=== PATIENT | female | born 1985 | race Hispanic/Latino ===

== ENCOUNTER 2017-04-26 15:01 | Outpatient (CLI) | payer OTHER | END 2017-04-26 15:02 | disposition home or self-care (01) | LOC: BICRAD 15:01 | DX: R05 Cough (principal); E66.9 Obesity, unspecified | CPT/HCPCS: 71046 ==

== ENCOUNTER 2017-08-22 06:44 | Emergency (ER) | payer OTHER ==
[2017-08-22 07:08] LABS: #Eosinphils 0.2 thou/uL (0.0-0.7); #Lymphocytes 2.5 thou/uL (1.20-3.40); #Monocytes 0.6 thou/uL (0.11-0.59); #Neutrophils 6.4 thou/uL (1.40-6.50); %Basophils 0.4 % (0.0-1.0); %Lymphocytes 25.4 % (21.0-51.0); %Monocytes 6.3 % (0.0-10.0); %Neutrophils 65.9 % (42.0-75.0); Hemoglobin 13.9 g/dL (12.0-16.0); Mean Corpuscular HGB CONC 36.1 g/dL (32.0-36.0); Mean Corpuscular Hemoglobin 32.8 pg (27.0-31.0); Mean Corpuscular Volume 91.1 fl (81.0-99.0); Platelet Count 318 thou/uL (130-400); Red Blood Cell (RBC) Count 4.24 mill/uL (4.20-5.40); White Blood Cell (WBC) Count 9.7 thou/uL (4.8-10.8)
--- NOTE | 2017-08-22 09:29 | ULT ---
ULTRASOUND PELVIC WITH DOPPLER: Date: 08/22/17 HISTORY: Pelvic pain. COMPARISON: None. TECHNIQUE: Real-time Perla scale with color Doppler and spectral analysis of the pelvis was performed via transab dominal and transvaginal approach. FINDINGS: The endometrium appears to be decidualized with a small hypoechoic focus within the fundus suggesting a gestational sac with a mean sac diameter of 0.47 cm. The endometrial thickness is 2.3 cm. Both ovaries are normal with adequate vascular flow. No free fluid in the pelvis. IMPRESSION: Likely a small gestational sac within the uterine fundus, with decidualized endometrium. Close follow -up HCG and ultrasound recommended. No pole is yet seen, which may reflect an early . POS: [facility]
== END 2017-08-22 09:39 | disposition home or self-care (01) ==
LOC: ERS 06:44
DX: O20.0 Threatened abortion (principal); O99.341 Other mental disorders complicating pregnancy, first trimester; F32.9 Major depressive disorder, single episode, unspecified; Z3A.10 10 weeks gestation of pregnancy
CPT/HCPCS: 36415; 76856; 84702; 85025; 86850; 86900; 86901

== ENCOUNTER 2017-12-21 13:57 | Outpatient (CLI) | payer OTHER ==
--- NOTE | 2017-12-21 16:29 | ULT ---
COMPLETE OB ULTRASOUND: 12/21/17 HISTORY: 31-year-old female with history of size and dates and anatomy evaluation. Single viable intrauterine fetus is noted in footling breech presentation. The placenta is posterior without evidence for placenta previa. Cervical length is poorly seen. heart rate 155 beats per minute. Amniotic fluid is within normal limits with an KAY of 14.7 cm. ANATOMY: Visualized brain, four chamber heart, three vessel cord, stomach, bladder, kidneys, spine and e xtremity regions are unremarkable as evaluated. BIOMETRY: BPD 5.4 cm - - 22 weeks, 3 days Head circumference 20.2 cm - - 22 weeks, 3 days Abdominal circumference 17.1 cm - - 22 weeks, 1 day Femur length 3.7 cm - - 21 weeks, 5 days IMPRESSION: Single viable intrauterine fetus at 22 weeks, 2 days. MORENA 04/24/18. Estimated weight is 462 gram s. POS: [facility]
== END 2017-12-21 13:58 | disposition home or self-care (01) ==
LOC: BICULT 13:57
PROVIDERS: ATTEND Family Medicine
DX: O09.892 Supervision of other high risk pregnancies, second trimester (principal); Z3A.22 22 weeks gestation of pregnancy
CPT/HCPCS: 76805

== ENCOUNTER 2018-02-19 03:05 | Day surgery (SDC) | payer OTHER ==
[2018-02-19 03:41] VITALS: BP 132/78; BMI 35.3
--- NOTE | 2018-02-19 04:19 | PDOC.FPROB ---
FMR OB H&P: HPI - History of Present Illness Chief Complaint: Contractions Indentification: 32 year old at 31 wks History of Present Illness: 32 year old at 31 wks with MORENA of 04/23/2018 presents with contractions since 1 AM. Patient states that they have been occurring every 5-6 minutes. She rates the contractions as a 5/10. Patient denies any past history of PTD. This has reportedly been uncomplicated. Patient denies vaginal bleeding, vaginal discharge, LoF. Patient denies recent sexual intercourse within the last 48 hours. Primary Care Physician: Surinder FMR OB H&P: Current - Care : 4 Para: 3 Gestational age: 31 Due date: 04/23/2018 FMR OB H&P: History - Past Medical History PMH: Hyperthyroidism not on medications - OB History OB History: x3 - SR. CONSULTANT History SR. CONSULTANT History: None - Surgical History Sx History: Cholecystectomy - Social History Social History: Denies alcohol, tobacco, or drug use - Family History Family History: Insignificant FMR OB H&P: Medications - Current Home Medications: Medication Instructions Recorded Confirmed Type Pnv No.95/Ferrous Fum/Folic AC 1 tab PO DAILY 02/19/18 02/19/18 History [ Vitamins Tablet] Allergies/Adverse Reactions: Allergies Allergy/AdvReac Type Severity Reaction Status Date / Time No Known Allergies Allergy Verified 02/19/18 03:32 FMR OB H&P: ROS - Review of Systems General: denies: fever/chills, weight/appetite/sleep changes Eyes: denies: double vision, scotomas ENT: reports: nasal congestion, rhinorrhea Cardiovascular: denies: chest pain, palpitation, edema Respiratory: denies: cough, congestion, shortness of breath Gastrointestinal: reports: abdominal pain. denies: nausea, vomiting, diarrhea, constipation Genitourinary (Female): reports: contractions. denies: incontinence, dysuria, vaginal discharge, vaginal bleeding Musculoskeletal: denies: pain, stiffness Neurologic: denies: syncope, seizures Integumentary: denies: rash, lesions Hematologic/Lymphatic: denies: prolonged or excessive bleeding Psychological: denies: depression, anxiety FMR OB H&P: Vital Signs - Maternal Vital signs: Vital Signs - First Documented Temp Pulse Resp BP 98.7 F 108 H 17 132/78 02/19/18 03:30 12/09/18 03:30 02/19/18 03:30 02/19/18 03:30 - Heart Tones Baseline: 150 Variability: moderate Acceleration: present Deceleration: absent Category: category 1 [place] contractions every: qq4-5 min FMR OB H&P: Physical Exam - Physical Exam General: NAD, awake, alert and oriented HEENT: MMM, grossly normal vision, grossly normal hearing Heart: RRR, no edema General: no respiratory distress, good air movement Abdomen: soft, gravid, non-tender Musculoskeletal: pulses present, FROM in all four extremities Neurological: no tremor, no focal deficit Skin: no rash, capillary refill <2 seconds Lymphatic: no unusual bruising or bleeding, no purpura Psychiatric: intact recent and remote memory, good judgement and insight, normal mood and affect - Pelvic Exam Deviation from normal: Mucoid discharge in vaginal canal per nurse SVE: 4:15 AM 3 FMR OB H&P: A/P - Problem List (1) Current Visit: Yes Status: Acute Qualifiers: Weeks of gestation: 31 weeks Qualified Code(s): Z3A.31 - 31 weeks gestation of (2) contractions Current Visit: Yes Status: Acute Code(s): O47.9 - FALSE LABOR, UNSPECIFIED Disposition: 32 year old at 31 wks presents with contractions 1. sIUP, - 31 wks - Will evaluate for labor; patient leatha q4-5 min - FFN collected, will hold until evaluation with sono for cervical length - If cervical length <2, will send for FFN - Continuous monitoring - Initial cervical check per nurse at 4:15 - IV fluid hydration - VP3, GC/CT pending - If patient appears to be in labor, will start steroids - Mg indicated if patient in labor as pt is less than 32 wks gestation 2. Hyperthyroidism - Not currently on medications - Will send for level if labs drawn 3. GBS unknown - Will treat if pt in labor Dispo: If patient in labor, will admit to L&D and start on Mg and steroids. Will also ppx treat for GBS. Discussion: Date/Time: 02/19/18 0417 This H&P was discussed with Dr. Ruiz who agrees with the above documentation and plan. Signature: Tamiko Anthony, DO PGY-2 Faculty note: Patient seen and examined. 31 weeks with threatened PTL. Cervical length is 4cm : per protocol, FFN not required as CX >2.5cm....observation in progress with reeval at 2 hrs from first exam. First exam was about 1cm/40/-1. No evidence ROM. Vss afebrile.
[2018-02-19] MEDS: Lactated Ringer's 1,000 ML IV SCH ×3 (04:37→08:15)
[2018-02-19] MEDS ORDERED: Lactated Ringer's 1,000 ML IV SCH (05:00)
[2018-02-19] MEDS ORDERED: Lactated Ringer's 500 ML IV SCH (05:00)
[2018-02-19 05:14] VITALS: TEMP 99.4
[2018-02-19] MEDS ORDERED: NIFEdipine 10 MG CAP PO SCH (06:30)
--- NOTE | 2018-02-19 06:32 | PDOC.EVN ---
Event Note - Event Note Event Note: Patient still leatha every 5 min, states contractions are painful Will give nifedipine 20mg one time, check EFW and position Re-check for cervical change at 0700 <Grady García - Last Filed: 02/19/18 06:31> - Event Note Event Note: Faculty: I have ordered one po nathaniel of nifedipine to see if this breaks the CTX. If dilation is evident, we will keep for Mag and steroids and full procardia protocol. Sono pending <Parish Ruiz - Last Filed: 02/19/18 06:57>
[2018-02-19 07:31] LABS: Hemoglobin 12.6 g/dL (12.0-16.0); Mean Corpuscular HGB CONC 35.2 g/dL (32.0-36.0); Mean Corpuscular Hemoglobin 31.2 pg (27.0-31.0); Mean Corpuscular Volume 88.8 fL (78.0-98.0); Mean Platelet Volume 6.5 fL (7.4-10.4); Platelet Count 263 thou/uL (130-400); RBC Distribution Width 12.7 % (11.5-14.5); Red Blood Cell (RBC) Count 4.02 mill/uL (4.20-5.40); White Blood Cell (WBC) Count 17.3 thou/uL (4.8-10.8)
--- NOTE | 2018-02-19 07:37 | PDOC.EVN ---
Event Note - Event Note Event Note: /-2 cervical check 1735g, breech presentation will re-check vaginal cervical length, was 4cm at 0412 awaiting lab results cxns have spaced to q6-7min s/p nifedipine 20mg <Grady García - Last Filed: 02/19/18 07:33> - Event Note Event Note: Faculty: Exam was performed by me. I reviewed her history with her again: Patient of Dr Cadena, no HX PTL, no hx LOF. I have reordered another cervical length to compare to the first (must be vaginal sono). I discussed with her the procardia given. I told her if cervix abnormally shortened we will give Mag and steroids and GBS coverage. Would need CS if labors for breech <Parish Ruiz - Last Filed: 02/19/18 07:41>
[2018-02-19 07:50] LABS: ALT (SGPT) 9 U/L (8-55); AST (SGOT) 16 U/L (5-34); Albumin 3.2 g/dL (3.5-5.0); Alkaline Phosphatase 114 U/L (40-150); Anion Gap 11 mmol/L (10-20); BUN (Urea Nitrogen) 4 mg/dL (7.0-18.7); Bilirubin, Total 0.4 mg/dL (0.2-1.2); Calc. Creatinine Clearance 196 mL/min (70-130); Calcium 8.8 mg/dL (7.8-10.44); Carbon Dioxide 20 mmol/L (22-29); Chloride 107 mmol/L (98-107); Estimated GFR-MDRD Greater than 90; Globulin 3.3 g/dL (2.4-3.5); Glucose 127 mg/dL (70-105); Potassium 3.3 mmol/L (3.5-5.1); Protein, Total 6.5 g/dL (6.0-8.3); Sodium 135 mmol/L (136-145)
--- NOTE | 2018-02-19 08:07 | ULT ---
LIMITED OB ULTRASOUND: DATE: 02/19/2018. PROVIDED CLINICAL HISTORY: Estimated weight and lie. FINDINGS: Comparison is made with the examination dated 12/21/2017. Single live intrauterine gestation is docu mented in breech presentation with heart rate of 171 b.p.m. documented. The visualized anatomy appears normal. Placenta is fundally located without evidence for previa. Amniotic fluid index is 13.1. Estimated weight is 1735+/-257 gm. Estimated gestational age based on today's study is 31 weeks 4 days, which correlates well with the gestational age established by the prior ultrasound. BIOMETRY: BPD 32 weeks 5 days Head circumference 31 weeks 1 day Abdominal circumference 31 weeks 2 days Femur length 30 weeks 6 days IMPRESSION: Single live intrauterine gestation 31 weeks 4 days by ultrasound. POS: [facility]
--- NOTE | 2018-02-19 08:27 | PDOC.EVN ---
Event Note - Event Note Event Note: Follow up sono: Cervical length was 4.4cm on repaet...unlikely to be laboring but will OBS a couple more hrs. Dr Goins and Raquel here with me.
--- NOTE | 2018-02-19 08:33 | ULT ---
LIMITED ENDOVAGINAL CERVICAL ULTRASOUND: DATE: 02/19/2018. PROVIDED CLINICAL HISTORY: Assess cervical length. FINDINGS: Cervical length measures approximately 44 cm. This is similar to the prior study. There is no evide nce for endocervical funneling. IMPRESSION: As above. POS: [facility]
--- NOTE | 2018-02-19 09:05 | PDOC.EVN ---
Event Note - Event Note Event Note: Patient's contractions have spaced out, now are irregular repeat cervical length 4.4 TSH 0.65, CBC/CMP WNL Patient will be discharged with instructions to f/u with PCP in clinic this week RTC for cxns <5 minutes apart, vaginal bleeding, ROM, or fever <Grady García - Last Filed: 02/19/18 09:03> Attending Addendum - Attending Addendum Date/Time: 02/19/18 1026 I personally evaluated the patient and discussed the management with Dr. García. I agree with the History, Examination, Assessment and Plan. <Reginald Goins - Last Filed: 02/19/18 10:26>
--- NOTE | 2018-02-19 12:48 | ULT ---
PRELIMINARY REPORT/[facility]/EMERGENCY AFTER HOURS PROCEDURE: EXAM: US , Transvaginal EXAM DATE/TIME: 02/19/2018 4:44 AM CLINICAL HISTORY: 32 years old, female; Pain; Other: Eval cervix length, contractions at 31wks; Gestational age or lmp: 31 wks; TECHNIQUE: Real-time transvaginal obstetrical ultrasound of the maternal pelvis and a first trimester with image documentation. Transvaginal imaging was used for better evaluation of the fetus and adnexa . COMPARISON: No relevant prior studies available. FINDINGS: GESTATION: Cervix: 4.7 to 4.9 cm and closed. IMPRESSION: Cervical length as described. Thank you for allowing us to participate in the care of your patient. Dictated and Authenticated by: Rosibel Estrada MD 02/19/2018 5:49 AM Central Time ([place] & [place]) FINAL REPORT EMERGENT AFTER HOURS LIMITED TRANSVAGINAL ULTRASOUND: IMPRESSION: Agree with the preliminary interpretation given by [facility]. POS: [facility]
[2018-02-20 21:49] LABS: Chlamydia by PCR Not Detected (NotDetected); GC by PCR Not Detected (NotDetected)
== END 2018-02-19 09:19 | disposition home or self-care (01) ==
LOC: L&D/OP 03:05
PROVIDERS: ATTEND Family Medicine
DX: O60.03 Preterm labor without delivery, third trimester (principal); O99.283 Endocrine, nutritional and metabolic diseases complicating pregnancy, third trimester; E05.90 Thyrotoxicosis, unspecified without thyrotoxic crisis or storm; O32.1XX0 Maternal care for breech presentation, not applicable or unspecified; Z79.899 Other long term (current) drug therapy; Z3A.31 31 weeks gestation of pregnancy
CPT/HCPCS: 36415; 76805; 80053; 84443; 85027; 87480; 87491; 87510; 87591; 87660; 96360; 96361; 99285

== ENCOUNTER 2018-03-27 04:47 | Inpatient (IN) | payer OTHER ==
[2018-03-27 05:24] VITALS: BMI 35.1
[2018-03-27] MEDS: Lactated Ringer's 1,000 ML IV SCH ×2 (09:40→19:13)
[2018-03-27] MEDS ORDERED: NS / Oxytocin 40 units/1000ml 1,000 ML ONE ×2 (09:41→09:47)
[2018-03-27] MEDS ORDERED: Lidocaine 1% (PF) 30 ML VIAL ONE ×2 (09:42→09:47)
[2018-03-27] MEDS ORDERED: Fentanyl 4 mcg/Bup 0.1% Cadd 0 ML ONE (09:54)
[2018-03-27] MEDS ORDERED: Ampicillin 2 GM in Sodium Chloride 0.9% 100 ML IVPB SCH (10:00)
[2018-03-27] MEDS ORDERED: HYDROcodone/Acetaminophen 5/325 mg Tablet PO PRN ×2 (10:20→11:18)
[2018-03-27] MEDS ORDERED: Ibuprofen 800 MG TAB PO SCH (10:30)
[2018-03-27] MEDS ORDERED: Ondansetron PF 4 MG/2 ML Vial IVP PRN ×2 (10:58→11:18)
[2018-03-27] MEDS ORDERED: NS / Oxytocin 40 units/1000ml 1,000 ML IV PRN (10:58)
[2018-03-27 11:06] LABS: Hemoglobin 13.2 g/dL (12.0-16.0); Mean Corpuscular Hemoglobin 30.1 pg (27.0-31.0); Mean Corpuscular Volume 86.1 fL (78.0-98.0); Mean Platelet Volume 6.9 fL (7.4-10.4); Platelet Count 334 thou/uL (130-400); Red Blood Cell (RBC) Count 4.39 mill/uL (4.20-5.40); White Blood Cell (WBC) Count 11.8 thou/uL (4.8-10.8)
[2018-03-27] MEDS ORDERED: NS / Oxytocin 40 units/1000ml 1,000 ML IV SCH (11:18)
[2018-03-27] MEDS ORDERED: Bisacodyl 10 MG SUPP PR PRN (11:18)
[2018-03-27] MEDS ORDERED: Adacel (T-DAP) 0.5 ML SYRINGE IM ONE (11:18)
[2018-03-27] MEDS ORDERED: Benzocaine/Menthol 20-0.5% 60 ML CAN TOP PRN (11:18)
[2018-03-27] MEDS ORDERED: Milk Of Magnesia 30 ML UDCUP PO PRN (11:18)
[2018-03-27] MEDS ORDERED: Lanolin Ointment 7 GM TUBE TOP PRN (11:18)
[2018-03-27 11:40] LABS: Syphilis Antibody Nonreactive (Nonreactive); Syphilis Antibody Index 0.06 S/CO (<1.00 Non-Reactive)
[2018-03-27 11:41] LABS: HBSAg Index 0.18 S/CO (0-0.99); Hep B Surf Ag Non-Reactive S/CO (NonReactive)
[2018-03-27] MEDS ORDERED: Ampicillin 1 GM in Sodium Chloride 0.9% 100 ML IVPB SCH (14:00)
[2018-03-27] MEDS: Ibuprofen 800 MG TAB PO SCH ×2 (14:53→20:58)
[2018-03-27] MEDS: HYDROcodone/Acetaminophen 5/325 mg Tablet PO PRN (17:43)
[2018-03-27] MEDS: Ferrous Sulfate 325 MG TAB PO SCH (17:44)
[2018-03-27] MEDS: Docusate Calcium (SURFAK) 240 MG CAP PO SCH (20:59)
[2018-03-28] MEDS: Ibuprofen 800 MG TAB PO SCH ×3 (04:40→20:58)
[2018-03-28 06:05] LABS: Hemoglobin 11.5 g/dL (12.0-16.0); Mean Corpuscular HGB CONC 35.4 g/dL (32.0-36.0); Mean Corpuscular Hemoglobin 31.2 pg (27.0-31.0); Mean Corpuscular Volume 88.1 fL (78.0-98.0); Mean Platelet Volume 6.8 fL (7.4-10.4); Platelet Count 273 thou/uL (130-400); RBC Distribution Width 12.9 % (11.5-14.5); White Blood Cell (WBC) Count 11.4 thou/uL (4.8-10.8)
[2018-03-28] MEDS: Lactated Ringer's 1,000 ML IV SCH ×3 (06:45→16:33)
[2018-03-28] MEDS: Docusate Calcium (SURFAK) 240 MG CAP PO SCH ×2 (08:45→20:58)
[2018-03-28] MEDS: Prenatal Vitamin 1 TAB PO SCH (08:45)
[2018-03-28] MEDS: Ferrous Sulfate 325 MG TAB PO SCH ×2 (08:45→16:32)
[2018-03-28] MEDS: HYDROcodone/Acetaminophen 5/325 mg Tablet PO PRN (20:58)
[2018-03-29] MEDS: Lactated Ringer's 1,000 ML IV SCH ×2 (03:43→13:17)
[2018-03-29] MEDS: Ibuprofen 800 MG TAB PO SCH ×2 (06:00→14:16)
[2018-03-29] MEDS: Prenatal Vitamin 1 TAB PO SCH (08:16)
[2018-03-29] MEDS: Docusate Calcium (SURFAK) 240 MG CAP PO SCH (08:16)
[2018-03-29] MEDS: Ferrous Sulfate 325 MG TAB PO SCH (08:16)
[2018-03-29 08:22] VITALS: BP 113/63; TEMP 98.8
== END 2018-03-29 17:25 | disposition home or self-care (01) | DRG 807 ==
LOC: L&D/OP 04:47 → L&D 09:57 → 3SW 13:24
PROVIDERS: ADMIT Family Medicine; ATTEND Family Medicine
PROC: 10E0XZZ Delivery of Products of Conception, External Approach (ICD-10-PCS; principal; 2018-03-27)
PROC: 10907ZC Drainage of Amniotic Fluid, Therapeutic from Products of Conception, Via Natural or Artificial Opening (ICD-10-PCS; 2018-03-27)
DX: O60.14X0 Preterm labor third trimester with preterm delivery third trimester, not applicable or unspecified (principal); Z37.0 Single live birth; Z3A.36 36 weeks gestation of pregnancy
CPT/HCPCS: 36415; 85027; 86780; 86850; 86900; 86901; 87340; 88307; 99285; J2001